=== PATIENT | female | born 1935 | race Caucasian/White ===

== ENCOUNTER 2021-08-10 09:14 | Inpatient (IN) | payer MEDICARE ==
[~2021-08-10] VITALS: Ht 170.2 cm; Wt 55.5 kg
[2021-08-10 11:21] LABS: BASOPHIL 0.4 % (0-2); EOSINOPHIL 0.4 % (0-7); HCT 42.1 % (37.0-47.0); HGB 13.3 g/dl (12.5-16.0); LYMPHOCYTE 26.9 % (15-48); MCH 27.3 pg (25.0-31.0); MCHC 31.6 g/dL (32.0-36.0); MCV 86.4 fL (78.0-100.0); MONOCYTE 8.8 % (0-12); MPV 11.1 fL (6.0-9.5); NEUTROPHIL 63.2 % (41-80); NRBC 0; PLT 235 K/uL (150-400); RBC 4.87 M/uL (4.20-5.40); RDW 14.5 % (11.5-14.0); WBC 6.7 K/uL (4.0-10.5)
[2021-08-10 11:46] LABS: ALBUMIN 3.4 g/dL (3.4-5.0); BILIRUBIN - TOTAL 1.1 mg/dL (0.2-1.0); BUN/CREAT RATIO (CALC) 25.4 RATIO; CREATININE 0.71 mg/dL (0.51-0.95); GLOBULIN (CALCULATION) 3.7 g/dL; POTASSIUM 4.7 mmol/L (3.5-5.1); TOTAL PROTEIN 7.1 g/dL (6.4-8.2)
[2021-08-10 11:49] LABS: LACTIC ACID 1.2 mmol/L (0.4-1.9)
[2021-08-10 13:51] LABS: BILIRUBIN NEGATIVE (NEGATIVE); BLOOD NEGATIVE Ery/uL (NEGATIVE); CLARITY CLEAR (CLEAR); COLOR YELLOW (YELLOW); GLUCOSE (U) NORMAL (NORMAL); LEUKOCYTES TRACE Leu/uL (NEGATIVE); NITRITE NEGATIVE (NEGATIVE); PROTEIN 1+ mg/dL (NEGATIVE); SPECIFIC GRAVITY 1.025 (1.001-1.030); UROBILINOGEN 0.2 mg/dL (0.2-1.0)
[2021-08-10] MEDS ORDERED: ELIQUIS5 MG PO (16:38)
[2021-08-10] MEDS ORDERED: LOSARTAN POTASS25 MG PO (16:39)
[2021-08-10] MEDS ORDERED: METOPROLOL TAR100 MG PO (16:40)
[2021-08-10] MEDS ORDERED: OMEPRAZOLE40 MG PO (16:40)
[2021-08-10] MEDS ORDERED: POTASSIUM CHLO10 ME1 PO (16:41)
[2021-08-10] MEDS ORDERED: MIRALAX17 GM PO (16:41)
[2021-08-11 06:02] LABS: BASOPHIL 0.4 % (0-2); EOSINOPHIL 0.6 % (0-7); HCT 41.5 % (37.0-47.0); HGB 13.3 g/dl (12.5-16.0); LYMPHOCYTE 21.8 % (15-48); MCV 84.3 fL (78.0-100.0); MONOCYTE 12.9 % (0-12); NRBC 0; PLT 217 K/uL (150-400); RBC 4.92 M/uL (4.20-5.40); RDW 14.1 % (11.5-14.0)
[2021-08-11 07:25] LABS: BUN/CREAT RATIO (CALC) 19.4 RATIO; CREATININE 0.72 mg/dL (0.51-0.95); MAGNESIUM 1.7 mg/dL (1.8-2.4)
[2021-08-11 07:54] LABS: POTASSIUM 3.2 mmol/L (3.5-5.1)
[2021-08-11 10:17] LABS: BUN/CREAT RATIO (CALC) 20.5 RATIO; CREATININE 0.73 mg/dL (0.51-0.95); POTASSIUM 3.5 mmol/L (3.5-5.1)
[2021-08-12 06:33] LABS: BASOPHIL 0.2 % (0-2); EOSINOPHIL 0.1 % (0-7); HCT 42.2 % (37.0-47.0); HGB 13.6 g/dl (12.5-16.0); LYMPHOCYTE 23.1 % (15-48); MCH 27.5 pg (25.0-31.0); MCHC 32.2 g/dL (32.0-36.0); MCV 85.3 fL (78.0-100.0); MPV 11.5 fL (6.0-9.5); NEUTROPHIL 63.3 % (41-80); NRBC 0; PLT 216 K/uL (150-400); RBC 4.95 M/uL (4.20-5.40); RDW 13.9 % (11.5-14.0); WBC 10.6 K/uL (4.0-10.5)
[2021-08-12 07:04] LABS: BUN/CREAT RATIO (CALC) 19.8 RATIO; CREATININE 0.81 mg/dL (0.51-0.95); POTASSIUM 3.5 mmol/L (3.5-5.1)
[2021-08-12] MEDS ORDERED: ALDACTONE25 MG PO (07:20)
[2021-08-12] MEDS ORDERED: MAG-OXIDE 400M400 MG PO (07:20)
[2021-08-12] MEDS ORDERED: BUMEX1 MG PO (07:43)
[2021-08-12] MEDS ORDERED: DIGITEK125 MCG PO (07:43)
--- NOTE | 2021-08-12 14:10 | NUR ---
08/12/21 Ms. Blackwell was admitted from [facility]. They will accept back per Elvia. Please call report to: [phone] and fax DS to: [phone].
== END 2021-08-12 11:37 | disposition home or self-care (01) | DRG 292 ==
LOC: FER 09:14 → FTCU 14:25
PROVIDERS: Emergency Medicine; Family Medicine; Internal Medicine Cardiovascular Disease; ADMIT Internal Medicine
DX: I13.0 Hypertensive heart and chronic kidney disease with heart failure and stage 1 through stage 4 chronic kidney disease, or unspecified chronic kidney disease (principal); I48.20 Chronic atrial fibrillation, unspecified; E83.42 Hypomagnesemia; R73.9 Hyperglycemia, unspecified; I50.9 Heart failure, unspecified; N18.2 Chronic kidney disease, stage 2 (mild); Z98.890 Other specified postprocedural states; Z79.01 Long term (current) use of anticoagulants; Z87.891 Personal history of nicotine dependence; Z82.49 Family history of ischemic heart disease and other diseases of the circulatory system; Z79.899 Other long term (current) drug therapy; Z88.0 Allergy status to penicillin; Z91.040 Latex allergy status
CPT/HCPCS: 36415; 36600; 71045; 80048; 80053; 80162; 81001; 82803; 83036; 83605; 83735; 83880; 84145; 84484; 85025; 87040; 87088; 93005; 94010; 96374; J1160; J2405; J7030

== ENCOUNTER 2021-11-16 18:51 | Inpatient (IN) | payer MEDICARE ==
[~2021-11-16] VITALS: Ht 162.6 cm; Wt 48.3 kg
[~2021-11-16 18:51] MED LIST: ALDACTONE25 MG PO; BUMEX1 MG PO; DIGITEK125 MCG PO; ELIQUIS5 MG PO; LOSARTAN POTASS25 MG PO; MAG-OXIDE 400M400 MG PO; METOPROLOL TAR100 MG PO; MIRALAX17 GM PO; OMEPRAZOLE40 MG PO; POTASSIUM CHLO10 ME1 PO
[2021-11-16 20:32] LABS: BILIRUBIN NEGATIVE (NEGATIVE); BLOOD NEGATIVE Ery/uL (NEGATIVE); CLARITY CLEAR (CLEAR); COLOR YELLOW (YELLOW); GLUCOSE (U) NORMAL (NORMAL); LEUKOCYTES NEGATIVE Leu/uL (NEGATIVE); NITRITE NEGATIVE (NEGATIVE); PROTEIN NEGATIVE (NEGATIVE); SPECIFIC GRAVITY 1.015 (1.001-1.030); pH 5.5 (5.0-9.0)
[2021-11-16 20:32] LABS: BASOPHIL 0.2 % (0-2); EOSINOPHIL 0.1 % (0-7); HCT 43.5 % (37.0-47.0); HGB 14.2 g/dl (12.5-16.0); LYMPHOCYTE 7.4 % (15-48); MCH 27.2 pg (25.0-31.0); MCHC 32.6 g/dL (32.0-36.0); MCV 83.3 fL (78.0-100.0); MONOCYTE 1.3 % (0-12); MPV 11.1 fL (6.0-9.5); NRBC 0; PLT 257 K/uL (150-400); RBC 5.22 M/uL (4.20-5.40); RDW 14.4 % (11.5-14.0); WBC 12.6 K/uL (4.0-10.5)
[2021-11-16 20:40] LABS: CORONAVIRUS 2019 SARS-COV-2 NEGATIVE (NEGATIVE); INFLUENZA A NAA NEGATIVE (NEGATIVE)
[2021-11-16 20:50] LABS: NEUTROPHIL 90.4 % (41-80)
[2021-11-16 21:21] LABS: INR 1.78 (0.9-1.2); PROTHROMBIN TIME 20.1 SECONDS (11.9-13.9); PTT 32.3 SECONDS (24.9-34.6)
[2021-11-16 21:25] LABS: ALBUMIN 2.4 g/dL (3.4-5.0); BILIRUBIN - TOTAL 1.3 mg/dL (0.2-1.0); BUN/CREAT RATIO (CALC) 41.2 RATIO; CREATININE 1.02 mg/dL (0.51-0.95); GLOBULIN (CALCULATION) 4.4 g/dL; POTASSIUM 3.4 mmol/L (3.5-5.1); TOTAL PROTEIN 6.8 g/dL (6.4-8.2)
[2021-11-16 22:02] LABS: D-DIMER 3.57 ug/mLFEU (0.00-0.41)
--- NOTE | 2021-11-17 17:01 | NUR ---
11/17/21 Ms. Blackwell was admitted from [facility]. She has a rollator. [facility] = PCP. Imaging revealed likely cancer. Ms. Blackwell is not interested in persuing treatment. She has requested Hospice services. Hospice will meet with her and her nephews this evening. Hospice will respond in the morning re: if patient will be acepted by Hospice. [facility] will accept pt back with Hospice services. Family will transport. Please call report to Carlton at: [phone] and fax DS to: [phone].
== END 2021-11-18 13:57 | disposition hospice, home (50) | DRG 436 ==
LOC: FER 18:51 → FTCU 11-17 00:45 → FMS 11-17 00:45
PROVIDERS: ADMIT Emergency Medicine
PROC: B24BZZZ Ultrasonography of Heart with Aorta (ICD-10-PCS; principal; 2021-11-17)
DX: C78.7 Secondary malignant neoplasm of liver and intrahepatic bile duct (principal); C79.51 Secondary malignant neoplasm of bone; I48.20 Chronic atrial fibrillation, unspecified; G93.40 Encephalopathy, unspecified; N17.9 Acute kidney failure, unspecified; I50.32 Chronic diastolic (congestive) heart failure; I13.0 Hypertensive heart and chronic kidney disease with heart failure and stage 1 through stage 4 chronic kidney disease, or unspecified chronic kidney disease; Z66 Do not resuscitate; E87.6 Hypokalemia; R74.02 Elevation of levels of lactic acid dehydrogenase [LDH]; Z20.822 Contact with and (suspected) exposure to COVID-19; E83.42 Hypomagnesemia; I48.91 Unspecified atrial fibrillation; N83.202 Unspecified ovarian cyst, left side; N83.201 Unspecified ovarian cyst, right side; N18.2 Chronic kidney disease, stage 2 (mild); E27.9 Disorder of adrenal gland, unspecified; Z85.3 Personal history of malignant neoplasm of breast; Z79.01 Long term (current) use of anticoagulants; F41.9 Anxiety disorder, unspecified; F32.A Depression, unspecified; Z88.0 Allergy status to penicillin; Z88.8 Allergy status to other drugs, medicaments and biological substances
CPT/HCPCS: 36415; 36600; 71045; 71250; 80053; 80162; 81003; 82803; 83605; 83735; 83880; 84145; 84484; 85025; 85379; 85610; 85730; 93005; 94640; 94664; 97162; 97530-GP; J0692; J3370; J3475; J7030; J7050; Q9967; U0002